=== PATIENT | male | born 1980 ===

== ENCOUNTER 2017-03-04 18:49 | Emergency (ER) | payer MEDICAID ==
[2017-03-04] MEDS ORDERED: Sodium Chloride 0.9% 1,000 ML IV ONE (20:05)
--- NOTE | 2017-03-04 20:05 | C.PDOC ---
History Of Present Illness Patient presents to the ER with a complaint of nausea and vomiting since Saturday after a bbq. Denies abdominal pain or diarrhea. Time Seen by Provider: 03/04/17 20:04 Chief Complaint (Nursing): GI Problem History Per: Patient History/Exam Limitations: no limitations Onset/Duration Of Symptoms: Days Current Symptoms Are (Timing): Still Present Context: Food Severity: Moderate Pain Scale Rating Of: 4 Location Of Pain/Discomfort: Diffuse Radiation Of Pain To:: None Quality Of Discomfort: Unable To Describe Associated Symptoms: Nausea, Vomiting. denies: Fever, Chills, Diarrhea Exacerbating Factors: None Alleviating Factors: None Recent travel outside of the [place]: No Past Medical History Reviewed: Historical Data, Nursing Documentation, Vital Signs - Medical History PMH: No Chronic Diseases Surgical History: No Surg Hx - [facility] Procedures INJECT/INFUSE NEC (07/01/14) Family History: States: No Known Family Hx - Social History Hx Alcohol Use: No Hx Substance Use: No - Immunization History Hx Tetanus Toxoid Vaccination: No Hx Influenza Vaccination: No Hx Pneumococcal Vaccination: No Review Of Systems Constitutional: Negative for: Fever, Chills Gastrointestinal: Positive for: Nausea, Vomiting. Negative for: Abdominal Pain , Diarrhea Physical Exam - Physical Exam Appears: Non-toxic Skin: Warm, Dry Eye(s): bilateral: Normal Inspection Oral Mucosa: Dry Neck: Supple Chest: Symmetrical, No Tenderness Cardiovascular: Rhythm Regular, No Murmur Respiratory: No Rales, No Rhonchi, No Wheezing Gastrointestinal/Abdominal: Soft, Tenderness (Mildly diffuse), Other (Tympanic to percussion) Back: Normal Inspection Extremity: Normal ROM Extremity: Bilateral: Atraumatic Neurological/Psych: Oriented x3 Gait: Steady ED Course And Treatment - Laboratory Results Result Diagrams: 03/04/17 20:23 03/04/17 20:23 O2 Sat by Pulse Oximetry: 98 Pulse Ox Interpretation: Normal Progress Note: Urinalysis ordered. Zofran, pepcid, and IV fluids administered. Reevaluation Time: 21:02 Reassessment Condition: Improved Disposition Counseled Patient/Family Regarding: Studies Performed, Diagnosis, Need For Followup, Rx Given - Disposition Referrals: [facility] [Outside] Disposition: HOME/ ROUTINE Disposition Time: 20:05 Condition: FAIR Prescriptions: Ondansetron ODT [Zofran ODT] 1 odt PO BID PRN #6 odt PRN Reason: Nausea/Vomiting Instructions: Acute Nausea and Vomiting (ED), Food Poisoning (ED) - Clinical Impression Clinical Impression: Nausea & vomiting, Food poisoning - Scribe Statement The provider has reviewed the documentation as recorded by the Scribjeniffer Whyte All medical record entries made by the Scribe were at my direction and personally dictated by me. I have reviewed the chart and agree that the record accurately reflects my personal performance of the history, physical exam, medical decision making, and the department course for this patient. I have also personally directed, reviewed, and agree with the discharge instructions and disposition.
[2017-03-04] MEDS ORDERED: Sodium Chloride 0.9% 1,000 ML ONE (20:12)
[2017-03-04 20:27] LABS: BASO # 0.1 K/uL (0.0-0.2); BASO % 0.7 % (0.0-2.0); EOS # 0.3 K/uL (0.0-0.7); EOS % 3.2 % (0.0-4.0); HEMOGLOBIN 14.8 g/dL (12.0-18.0); LYMPH # 3.5 K/uL (1.0-4.3); LYMPH % 42.4 % (20.0-40.0); MEAN CELL VOLUME 94.7 fL (80.0-94.0); MEAN CORPUSCULAR HEMOGLOBIN 32.3 pg (27.0-31.0); MEAN CORPUSCULAR HGB CONC 34.1 g/dL (33.0-37.0); MEAN PLATELET VOLUME 8.7 fL (7.2-11.7); MONO # 0.5 K/uL (0.0-0.8); MONO % 6.6 % (0.0-10.0); NEUT # 3.9 K/uL (1.8-7.0); NEUT % 47.1 % (50.0-75.0); NRBC % 0.1 % (0.0-2.0); RBC 4.58 Mil/uL (4.40-5.90); RED CELL DISTRIBUTION WIDTH 12.6 % (11.5-14.5); WHITE BLOOD COUNT 8.3 K/uL (4.8-10.8)
[2017-03-04 20:33] LABS: ALBUMIN 4.3 g/dL (3.5-5.0)
[2017-03-04 20:36] LABS: ALB/GLOB RATIO 1.2 (1.0-2.1); ALT/SGPT 26 U/L (21-72); AST/SGOT 26 U/L (17-59); BLOOD UREA NITROGEN 19 mg/dL (9-20); CALCIUM 9.3 mg/dl (8.6-10.4); GFR AFRICAN-AMERICAN > 60; GFR NON-AFRICAN AMERICAN > 60; LIPASE 41 U/L (23-300)
[2017-03-04 20:48] LABS: SQUAMOUS EPITHIAL < 1 /hpf (0-5); URINE BILIRUBIN NEGATIVE (NEGATIVE); URINE BLOOD NEGATIVE (NEGATIVE); URINE CLARITY Clear (Clear); URINE COLOR Yellow (YELLOW); URINE GLUCOSE (UA) NORMAL (Normal); URINE LEUKOCYTE ESTERASE NEG Leu/uL (Negative); URINE NITRATE NEGATIVE (NEGATIVE); URINE PROTEIN NEGATIVE (NEGATIVE); URINE UROBILINOGEN NORMAL mg/dL (0.2-1.0)
[2017-03-04 21:43] VITALS: BP 112/70; PULSE 63; RESP 20; TEMP 97.9; O2SAT 99
== END 2017-03-04 21:43 | disposition home or self-care (01) ==
LOC: C.ER 18:49
DX: T62.91XA Toxic effect of unspecified noxious substance eaten as food, accidental (unintentional), initial encounter (principal); R11.2 Nausea with vomiting, unspecified
CPT/HCPCS: 80053; 81001; 83690; 85025; 96361; 96374; 96375; 99284; J2405; J7040

== ENCOUNTER 2018-01-19 15:11 | Emergency (ER) | payer MEDICAID ==
[2018-01-19 15:11] VITALS: BMI 22.4
[2018-01-19 15:17] VITALS: BP 118/77; PULSE 83; RESP 16; TEMP 98.3; O2SAT 98
--- NOTE | 2018-01-19 15:30 | C.PDOC ---
History Of Present Illness Pt c/o left ear discomfort, itching and discharge. Time Seen by Provider: 01/19/18 15:19 Chief Complaint (Nursing): ENT Problem History Per: Patient Onset/Duration Of Symptoms: Days (few) Current Symptoms Are (Timing): Still Present Quality (Ear): Discharge Severity: Moderate Past Medical History Reviewed: Historical Data, Nursing Documentation, Vital Signs Vital Signs: Last Vital Signs Temp 98.3 F 01/19/18 15:15 Pulse 83 01/19/18 15:15 Resp 16 01/19/18 15:15 BP 118/77 01/19/18 15:15 Pulse Ox 98 01/19/18 15:15 - Medical History PMH: No Chronic Diseases Surgical History: No Surg Hx - [facility] Procedures INJECT/INFUSE NEC (07/01/14) Family History: States: Unknown Family Hx - Social History Hx Alcohol Use: No Hx Substance Use: No - Immunization History Hx Tetanus Toxoid Vaccination: No Hx Influenza Vaccination: No Hx Pneumococcal Vaccination: No Review Of Systems Except As Marked, All Systems Reviewed And Found Negative. Constitutional: Negative for: Fever, Weakness ENT: Positive for: Ear Pain (left), Ear Discharge (left) Cardiovascular: Negative for: Chest Pain Respiratory: Negative for: Shortness of Breath Gastrointestinal: Negative for: Vomiting, Abdominal Pain Musculoskeletal: Negative for: Neck Pain Skin: Negative for: Rash Neurological: Negative for: Weakness, Numbness, Headache Physical Exam - Physical Exam Appears: Non-toxic, No Acute Distress Skin: Normal Color, Warm, Dry, No Rash Head: Atraumatic, Normacephalic Eye(s): bilateral: Normal Inspection, PERRL, EOMI Ear(s): Left: TM Dull, Other (Canal erythema), Right: Normal Neck: Normal ROM, Supple Lymphatic: No Adenopathy Extremity: Normal ROM Neurological/Psych: Oriented x3, Normal Speech, Normal Cranial Nerves, Normal Motor, Normal Sensation ED Course And Treatment O2 Sat by Pulse Oximetry: 98 Pulse Ox Interpretation: Normal Disposition Counseled Patient/Family Regarding: Diagnosis, Need For Followup, Rx Given - Disposition Referrals: Suleiman Romo MD [Staff Provider] - Disposition: HOME/ ROUTINE Disposition Time: 15:30 Condition: STABLE Additional Instructions: Follow up with an ENT specialist for further evaluation and treatment. Return to the ER if you develop fever, pain, worsening of symptoms or if you have any other concerns. Prescriptions: Neomycin/Polymyxin/Hydrocort [Cortisporin Otic Soln] 4 drop QID #1 bottle Instructions: Outer Ear Infection (DC) - Clinical Impression Clinical Impression: Left otitis externa
== END 2018-01-19 15:39 | disposition home or self-care (01) ==
LOC: C.ER 15:11
DX: H60.92 Unspecified otitis externa, left ear (principal)

== ENCOUNTER 2018-02-20 16:19 | Emergency (ER) | payer MEDICAID ==
[2018-02-20 16:19] VITALS: BMI 22.4
--- NOTE | 2018-02-20 17:16 | C.PDOC ---
History Of Present Illness 38 year old male presents to ED with right ear pain for 3 days. Patient states that the ear pain radiates into jaw and head. Patient reports having similar symptoms last month left ear for which he was treated and symptoms improved. He wants to be evaluated and ask if he can still use antibiotic ear drops. Denies any fever, drainage, impaired hearing. Time Seen by Provider: 02/20/18 17:06 History Per: Patient History/Exam Limitations: None Onset/Duration Of Symptoms: Days Current Symptoms Are (Timing): Still Present Severity: Moderate Past Medical History Reviewed: Historical Data, Nursing Documentation, Vital Signs Vital Signs: Last Vital Signs Temp 99 F 02/20/18 17:14 Pulse 67 02/20/18 17:14 Resp 18 02/20/18 17:14 BP 119/80 02/20/18 17:14 Pulse Ox 99 02/20/18 17:14 - Medical History PMH: No Chronic Diseases Other Surgeries: Hx of surgeries - [facility] Procedures INJECT/INFUSE NEC (07/01/14) Family History: States: No Known Family Hx - Social History Hx Alcohol Use: No Hx Substance Use: No - Immunization History Hx Tetanus Toxoid Vaccination: No Hx Influenza Vaccination: No Hx Pneumococcal Vaccination: No Review Of Systems Except As Marked, All Systems Reviewed And Found Negative. Constitutional: Negative for: Fever, Chills ENT: Positive for: Ear Pain (right ear pain). Negative for: Ear Discharge Physical Exam - Physical Exam Appears: Non-toxic, No Acute Distress Skin: Normal Color, Warm, Dry Head: Atraumatic, Normacephalic Eye(s): bilateral: Normal Inspection Ear(s): Left: Normal, Right: Other (tragus tenderness, swollen and erythematous ear canal with exudates) Nose: Normal Oral Mucosa: Moist Throat: Normal, No Erythema, No Exudate Neck: Supple Chest: Symmetrical Cardiovascular: Rhythm Regular Respiratory: Normal Breath Sounds, No Rales, No Rhonchi, No Wheezing Extremity: Normal ROM Neurological/Psych: Oriented x3, Normal Speech Medical Decision Making Medical Decision Making: Impression: otitis externa Discharge with rx cortisporin otic drops to apply QID. Instruct to follow up with ENT Disposition Counseled Patient/Family Regarding: Diagnosis, Need For Followup, Rx Given - Disposition Referrals: Suleiman Romo MD [Staff Provider] - Disposition: HOME/ ROUTINE Disposition Time: 17:15 Condition: GOOD Additional Instructions: Apply cortisporin otic drops to right ear four times a day for one week Follow up with ENT Prescriptions: Ibuprofen [Motrin] 600 mg PO Q8 #30 tab Neomycin/Polymyxin/Hydrocortis [Cortisporin Otic Susp] 1 drop AD QID #1 bottle Instructions: Outer Ear Infection (DC) Forms: [employer] ([place]an) - POA Present On Arrival: None - Clinical Impression Clinical Impression: Right otitis externa - 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 - Scribe Statement The provider has reviewed the documentation as recorded by the Wilmeribe Emily Appiah Provider Attestation All medical record entries made by the Wilmeribe were at my direction and personally dictated by me. I have reviewed the chart and agree that the record accurately reflects my personal performance of the history, physical exam, medical decision making, and the department course for this patient. I have also personally directed, reviewed, and agree with the discharge instructions and disposition.
[2018-02-20 17:17] VITALS: BP 119/80; PULSE 67; RESP 18; TEMP 99; O2SAT 99
== END 2018-02-20 17:27 | disposition home or self-care (01) ==
LOC: C.ER 16:19
DX: H60.91 Unspecified otitis externa, right ear (principal)

== ENCOUNTER 2018-07-07 08:17 | Emergency (ER) | payer MEDICAID ==
[2018-07-07 08:17] VITALS: BMI 22.4
[2018-07-07 08:43] VITALS: TEMP 99
--- NOTE | 2018-07-07 09:19 | C.PDOC ---
History Of Present Illness 38 y/o male presents to the ER for evaluation of right upper toothache associated with facial swelling gradually developed over the past 3 days. Patient denies having fever, chills, headache, dizziness, earache, drooling, trismus, denies recent dental work, denies known trauma or injury. Ambulate to Ed for evaluation, not in any apparent distress. Time Seen by Provider: 07/07/18 08:47 Chief Complaint (Nursing): Dental Pain History Per: Patient History/Exam Limitations: no limitations Onset/Duration Of Symptoms: Days Current Symptoms Are (Timing): Still Present Severity: Moderate Past Medical History Reviewed: Historical Data, Nursing Documentation, Vital Signs Vital Signs: Last Vital Signs Temp 99 F 07/07/18 08:38 Pulse 75 07/07/18 08:38 Resp 18 07/07/18 08:38 BP 131/76 07/07/18 08:38 Pulse Ox 99 07/07/18 08:38 - Medical History PMH: Back Problems Other Surgeries: Hx of surgeries - [facility] Procedures INJECT/INFUSE NEC (07/01/14) Family History: States: No Known Family Hx - Social History Hx Alcohol Use: No Hx Substance Use: No - Immunization History Hx Tetanus Toxoid Vaccination: No Hx Influenza Vaccination: No Hx Pneumococcal Vaccination: No Review Of Systems Except As Marked, All Systems Reviewed And Found Negative. Constitutional: Negative for: Fever, Chills ENT: Positive for: Mouth Pain. Negative for: Throat Pain Physical Exam - Physical Exam Appears: Well, Non-toxic, No Acute Distress Skin: Normal Color, Warm, Dry, No Rash, No Ecchymosis Eye(s): bilateral: PERRL Ear(s): Bilateral: Normal Nose: No Flaring, No Discharge Oral Mucosa: Moist, No Drooling, No Trismus Tongue: Normal Appearing Lips: Normal Appearing Teeth: Other (partial denture upper jaw) Gingiva: Erythema (#3), Swelling (around root of tooth # 3), Tender (#3), Other (Mild facial edema over Right cheeck , no erythema, no flactulance.) Throat: No Erythema, No Exudate, No Drooling, Other (uvula midline, no edema.) Neck: Trachea Midline, Supple Chest: Symmetrical Cardiovascular: Rhythm Regular, No Murmur, No JVD Respiratory: No Decreased Breath Sounds, No Accessory Muscle Use, No Stridor, No Wheezing Extremity: Normal ROM Neurological/Psych: Oriented x3, Normal Speech ED Course And Treatment O2 Sat by Pulse Oximetry: 99 (RA) Pulse Ox Interpretation: Normal Progress Note: On re-eval, pt is afebrile, hemodynamicaly stable. non-toxic. Tolerate Po well in ED. PulsEOx 99% RA. ENT: Exam c/w early #3 tooth abscess. No flactulance. neck: Supple, (-) meningeal sign, (-) JVD. Lungs: CTA B/L, BS equal B/L. Neuorlogicaly intact. pt advised and ref. to F/u with Dentist in 2- 3 days for re-eavl. return if any new changes. Disposition Counseled Patient/Family Regarding: Diagnosis, Need For Followup, Rx Given - Disposition Referrals: [facility] [Provider Group] [facility] [Provider Group] Disposition: HOME/ ROUTINE Disposition Time: 09:18 Condition: STABLE Additional Instructions: Warm salty water tooth baths 2-3 times daily take medications as prescribed Follow up with Dentist in 2-3 days for re-evaluation. 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 - Scribe Statement The provider has reviewed the documentation as recorded by the Mike Appiah Provider Attestation All medical record entries made by the Mike were at my direction and personally dictated by me. I have reviewed the chart and agree that the record accurately reflects my personal performance of the history, physical exam, medical decision making, and the department course for this patient. I have also personally directed, reviewed, and agree with the discharge instructions and disposition.
[2018-07-07 09:39] VITALS: BP 128/79; PULSE 81; RESP 16
[2018-07-07 09:51] VITALS: O2SAT 99
== END 2018-07-07 09:38 | disposition home or self-care (01) ==
LOC: C.ER 08:17
DX: K04.7 Periapical abscess without sinus (principal)